=== PATIENT | female | born 2000 | race Caucasian/White ===

== ENCOUNTER 2021-07-30 19:06 | Emergency (ER) | payer OTHER, SELFPAY ==
[2021-07-30 19:35] VITALS: BP 186/148; PULSE 114; RESP 18; TEMP 36.7; O2SAT 99; BMI 51.5
--- NOTE | 2021-07-30 19:35 | W.ED.GENADLT ---
HPI - General Adult General: Chief complaint: Urogenital-Female Stated complaint: Vaginal Pain\Lesion Time Seen by Provider: 07/30/21 19:35 History of Present Illness: 20-year-old female comes in today for complaints of vaginal pain with discharge. Patient reports all started when she had used some wipes which irritated her and then she had to use a different size of tampon which seemed to aggravate her symptoms more. Patient was seen 2 days ago with primary care and they had started on some valacyclovir and recommended that she avoid the use of further tampons or other products until she is recovered. Patient reports worsening drainage and irritation. Patient denies any fever or chills. Patient appears in mild to moderate discomfort. Review of Systems General: Reports: 10 or more systems reviewed and unremarkable except in HPI and below : Reports: vaginal discharge [facility] ED PFSH: Medical History (Updated 07/30/21 @ 20:32 by REBECCA Ruff) Psychiatric care Physical Exam Const: COMMON NORMALS: alert Resp: COMMON NORMALS: normal respiratory effort Cardio: COMMON NORMALS: regular rate and regular rhythm RATE: regular rate RHYTHM: regular rhythm GI: COMMON NORMALS: Soft to palpation PALPATION: Yes Soft to palpation : EXTERNAL FEMALE EXAM: Yes erythema, Yes external swelling and Yes lesion (Vesicular lesions and ulcerations five to 6 o'clock position) SPECULUM EXAM - VAGINA: Yes erythematous and Yes lesion Neuro: SENSORIUM/ORIENTATION: Yes alert Psych: COMMON NORMALS: cooperative Skin: COMMON NORMALS: no rashes or lesions noted GENERAL SKIN EXAM: no rashes or lesions noted Course Vital Signs: Vital signs: Vital Signs Temperature 98.1 F 07/30/21 19:35 Pulse Rate 114 H 07/30/21 19:35 Respiratory Rate 18 07/30/21 19:35 Blood Pressure 186/148 07/30/21 19:35 Pulse Oximetry 99 07/30/21 19:35 MDM - General Adult Medical Decision Making 20-year-old female comes in today with vaginal drainage and discomfort. Patient was seen on Sunday and was diagnosed with probable herpes genitalia. On exam patient did have copious amounts of mucoid drainage with surrounding tissue erythema. Patient also had some vesicular lesions to the 5 to 6 o'clock position of the vaginal orifice. Differential diagnosis includes STI, vaginitis, genital herpes. Wet prep noted large amount of clue cells and white blood cells. Urinalysis showed white blood cells and red blood cells. Strong suspicion for bacterial vaginosis with a secondary herpetic outbreak. Outstanding lab for gonorrhea and chlamydia. Patient will continue her valacyclovir 1 g 3 times a day for 7 days. Patient was given a gram of Rocephin to cover for STI. Patient will be continued on doxycycline 100 mg twice a day for 7 days and Flagyl 500 mg twice a day for 7 days. Encourage use of no soaps or other products in the vaginal area until everything gets back to normal. Encourage plenty of fluids and follow-up with primary care in 3 days for recheck of symptoms and outstanding labs. Patient reported understanding agreed to plan. Lab Data Laboratory Results Urine Color Yellow (Yellow) 07/30/21 19:49 Urine Appearance Sl cloudy (CLEAR) A 07/30/21 19:49 Urine pH 5 (5-7) 07/30/21 19:49 Ur Specific [place] 1.025 (1.005-1.030) 07/30/21 19:49 Urine Protein Trace (Negative) 07/30/21 19:49 Urine Glucose (UA) Norm (Normal) 07/30/21 19:49 Urine Ketones 1+ (Negative) H 07/30/21 19:49 Urine Blood 3+ (Negative) H 07/30/21 19:49 Urine Nitrate Negative (Negative) 07/30/21 19:49 Urine Bilirubin Neg (Negative) 07/30/21 19:49 Urine Urobilinogen 1 mg/dL (Negative) H 07/30/21 19:49 Ur Leukocyte Esterase 2+ (Negative) H 07/30/21 19:49 Urine RBC 50-80 /hpf (0-2) H 07/30/21 19:49 Urine WBC 40-55 /hpf (0-5) H 07/30/21 19:49 Ur Squamous Epith Cells 15-25 /hpf (0-5) H 07/30/21 19:49 Amorphous Sediment Not Reportable 07/30/21 19:49 Urine Bacteria 3+ /hpf (NONE) H 07/30/21 19:49 Urine HCG, Qual Negative (Negative) 07/30/21 19:49 Discharge Plan Discharge Clinical Impression: Vaginitis Qualifiers: Chronicity: acute Qualified Code(s): N76.0 - Acute vaginitis Condition: Stable Prescriptions: New hydrocodone-acetaminophen 5-325 mg tablet 1 tab PO Q6H PRN (Reason: pain) Qty: 7 0RF doxycycline monohydrate 100 mg capsule 100 mg PO Q12H 7 Days Qty: 14 0RF metronidazole 500 mg tablet 500 mg PO BID 7 Days Qty: 14 0RF No Action sertraline 100 mg tablet 100 mg PO DAILY 0RF hydrochlorothiazide 12.5 mg tablet 10 mg PO DAILY 0RF omeprazole 20 mg capsule,delayed release(DR/EC) 20 mg PO DAILY 0RF Discharge Diet: Usual diet Discharge Activity: Increase activity as tolerated Activity Restrictions/Additional Instructions: Continue with acyclovir 1000 mg but increase the dose to three times a day for 7 days. Use doxycycline 100 mg and metronidazole 500 mg twice daily for 7 days. Drink plenty of water with medications. Activity as tolerated. Follow-up with primary care in 3 days for recheck. Return to the emergency department for new concerns. 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
[2021-07-30] MEDS: HYDROcodone-acetaminophen 7.5-325 mg Tablet 1 TAB PO (19:54)
[2021-07-30 20:22] LABS: Add Urine Microscopic? YES; Bilirubin Urine Neg (Negative); Blood Urine 3+ (Negative); Glucose Urine UA Norm (Normal); Ketones Urine 1+ (Negative); Leukocyte Esterase Urine 2+ (Negative); Nitrate Urine Negative (Negative); Protein Urine Trace (Negative); Specific Gravity, Urine 1.025 (1.005-1.030); Urine Color Yellow (Yellow); Urobilinogen Urine 1 mg/dL (Negative); pH Urine 5 (5-7)
[2021-07-30 20:24] LABS: Add Urine Culture? No; Bacteria Urine 3+ /hpf; RBC Urine 50-80 /hpf (0-2); Squamous Epithelial Cell Urine 15-25 /hpf (0-5); WBC Urine 40-55 /hpf (0-5)
[2021-07-30] MEDS: metroNIDAZOLE 500 MG Tablet PO (21:06)
[2021-07-30] MEDS: doxycycline 100 mg Tablet PO (21:06)
[2021-07-30] MEDS: cefTRIAXone 1,000 MG in lidocaine 1% 2.1 ML 100 MG IM (21:07)
[2021-07-30 21:26] VITALS: BP 154/113; PULSE 117; RESP 18; O2SAT 99
== END 2021-07-30 21:29 | disposition home or self-care (01) ==
PROVIDERS: Emergency Provider Nurse Practitioner Family
DX: N76.0 Acute vaginitis (principal)
CPT/HCPCS: 81001; 81025; 87070; 87205; 87210; 87491; 87591; 96372; 99283; J0696

== ENCOUNTER → 2024-03-08 15:17 | Outpatient (BNVA) | payer MEDICAID, SELFPAY | PROVIDERS: Visit Provider Registered Nurse Neonatal Intensive Care | DX: J02.9 Acute pharyngitis, unspecified (principal) | CPT/HCPCS: 87880 ==

== ENCOUNTER 2024-04-06 09:49 | Emergency (ER) | payer MEDICAID, SELFPAY ==
--- NOTE | 2024-04-06 09:51 | XRR_ITS ---
PROCEDURE INFORMATION: Exam: XR Right Foot Exam date and time: 04/06/2024 10:04 AM Age: 23 years old Clinical indication: Injury or trauma; Fall; Blunt trauma and sprain or strain; Foot; Right TECHNIQUE: Imaging protocol: Radiologic exam of the right foot. Views: 3 or more views. COMPARISON: No relevant prior studies available. FINDINGS: Bones/joints: No fracture or dislocation is appreciated. Joint spaces are relatively well preserved. Bony mineralization is normal. Soft tissues: There is soft tissue swelling involving the midfoot and forefoot. XR/XR foot RT min 3V* [id number] IMPRESSION: 1. Soft tissue swelling.
[2024-04-06 10:27] VITALS: BP 133/90; PULSE 84; RESP 18; TEMP 37.1; O2SAT 99; BMI 51.5
--- NOTE | 2024-04-06 12:18 | XRR_ITS ---
PROCEDURE INFORMATION: Exam: XR Right Ankle Exam date and time: 04/06/2024 12:24 PM Age: 23 years old Clinical indication: Right; Patient HX: RT ankle pain/swelling post fall TECHNIQUE: Imaging protocol: Radiologic exam of the right ankle. Views: 3 or more views. COMPARISON: CR (LOW EXM, ) 04/06/2024 10:04 AM FINDINGS: Bones/joints: Normal. Soft tissues: There is edema in the soft tissues. XR/XR ankle RT min 3V* [id number] IMPRESSION: There is edema in the soft tissues.
--- NOTE | 2024-04-06 12:23 | W.ED.EXTPRO ---
HPI - Extremity Problem General: Chief complaint: Extremity Injury, Lower Stated complaint: right foot injury Time Seen by Provider: 04/06/24 11:46 Source: patient Mode of arrival: ambulatory Limitations: no limitations History of Present Illness: 23-year-old female states on Sunday she developed a step states she twisted her right ankle and foot she been having right foot and ankle pain since and she is seen at [facility] but unsure if what the x-rays are shown she has been having swelling and bruising unable to bear any weight she rates pain 8 out of 10 currently denies any other injuries denies any headache. Associated symptoms: Deny chest pain, fever(s) or rash Related Data Home Medications Medication Instructions Recorded Confirmed omeprazole 20 mg capsule,delayed 20 mg PO DAILY 06/09/21 03/08/24 release Previous Rx's Medication Instructions Recorded amoxicillin 500 mg tablet 500 mg PO BID 10 days #20 tabs 03/08/24 loratadine 10 mg tablet (Allergy 10 mg PO DAILY #30 tabs 03/08/24 Relief (loratadine)) hydrocodone 5 mg-acetaminophen 325 1 tab PO Q6H PRN pain #14 tabs 04/06/24 mg tablet Allergies Allergy/AdvReac Type Severity Reaction Status Date / Time lactase [Dairy Aid] Allergy Intermediate Bloated, Verified 03/08/24 15:06 Gastrointestinal Distress Review of Systems Const: Denies: fever(s), chills, body aches or change in appetite ENMT: Denies: throat pain or dental pain Card: Denies: chest pain Resp: Denies: dyspnea GI: Denies: abdominal pain, nausea, vomiting or diarrhea Musc: Reports: extremity pain; Denies: neck pain or back pain Skin/Breast: Denies: rash Neuro: Denies: headache(s) [facility] ED PFSH: Social History Smoking and tobacco/nicotine status: current every day tobacco/nicotine user (vape) Physical Exam Const: COMMON NORMALS: no acute distress, patient oriented x3 and healthy appearing HENMT: COMMON NORMALS: normocephalic and atraumatic HEAD & SCALP: normocephalic and atraumatic Neck/C-Spine: COMMON NORMALS: full ROM and supple Chest: COMMONS NORMALS: normal inspection of the chest Resp: COMMON NORMALS: normal respiratory effort Extremity: NARRATIVE EXTREMITY EXAM: Bruising swelling noted to right foot and ankle no obvious deformity Neuro: COMMON NORMALS: patient oriented x3, moves all extremities and no focal motor deficits Psych: COMMON NORMALS: mental status grossly normal, Normal thought process present and cooperative THOUGHT PROCESS: Normal thought process present Skin: COMMON NORMALS: no rashes or lesions noted and no wounds GENERAL SKIN EXAM: no rashes or lesions noted Course Vital Signs: Vital signs: Vital Signs Temperature 98.8 F 04/06/24 10:27 Pulse Rate 84 04/06/24 10:27 Respiratory Rate 18 04/06/24 10:27 Blood Pressure 133/90 04/06/24 10:27 Pulse Oximetry 99 04/06/24 10:27 Oxygen Delivery Me thod Room Air 04/06/24 10:27 MDM - Extremity (Nontraumatic) Medical Decision Making Patient presents here with an ankle sprain x-ray shows no fracture we will get her follow-up with podiatry she is to return if worsening she understands agrees to plan Medical Records I reviewed the patient's medical records. Lab Data Radiology Impressions Foot X-Ray 04/06/24 09:51 IMPRESSION: 1. Soft tissue swelling. XR interpretation done by ED provider, pending radiology final review ED provider radiology interpretation(s): X-ray right foot no acute fracture X-ray right ankle no acute fracture Discharge Plan Discharge Patient Disposition: Home Clinical Impression: Ankle sprain and strain Condition: Stable Prescriptions: New hydrocodone-acetaminophen 5-325 mg tablet 1 tab PO Q6H PRN (Reason: pain) Qty: 14 0RF No Action omeprazole 20 mg capsule,delayed release(DR/EC) 20 mg PO DAILY amoxicillin 500 mg tablet 500 mg PO BID 10 Days Qty: 20 0RF loratadine [Allergy Relief (loratadine)] 10 mg tablet 10 mg PO DAILY Qty: 30 0RF Discharge Orders: Discharge ED (Routine); Ordered 04/06/24 Ordered By: Francisco Javier Costa Referrals: Magdy Jacobs DPM [Physician] - 4-7 days Discharge Diet: Advance as tolerated Discharge Activity: Limit activity as instructed Patient Instructions: Ankle Sprain (ED), Opioid Safety Coding Level of Care Code ED [employer] Hand for [facility] Paula
[2024-04-06] MEDS: HYDROcodone-acetaminophen 5-325 mg Tablet 1 TAB PO (12:24)
[2024-04-06 12:49] VITALS: BP 132/89; PULSE 73; O2SAT 99
--- NOTE | 2024-04-07 09:39 | DCPLANNER ---
Message sent to Ortho for follow up on ankle sprain-
== END 2024-04-06 12:51 | disposition home or self-care (01) ==
PROVIDERS: Emergency Provider Emergency Medicine
DX: S96.911A Strain of unspecified muscle and tendon at ankle and foot level, right foot, initial encounter (principal); S93.401A Sprain of unspecified ligament of right ankle, initial encounter; X50.0XXA Overexertion from strenuous movement or load, initial encounter
CPT/HCPCS: 73610; 73630; 99283